=== PATIENT | female | born 1960 | race Caucasian/White ===

== ENCOUNTER → 2018-09-14 14:56 | Outpatient (CLI) | payer OTHER, SELFPAY ==
--- NOTE | 2018-09-14 15:00 | BI_ITS ---
MAMMOGRAPHY - BILATERAL SCREENING REASON FOR EXAM: Female, 58 years old. Routine annual screening examination. PERTINENT HISTORY: Non-contributory. TECHNIQUE: Digital bilateral breast desiree (3D mammographic acquisition) in the CC and MLO projections. 2-D mediolateral oblique (MLO) and craniocaudad (CC) views of both breasts were obtained. CAD: Full Field Digital Mammography with Computer Added Detection was performed. COMPARISON: Comparison is made with prior study dated September 08, 2017. FINDINGS: Breast Composition: The breasts are heterogeneously dense, which may obscure small masses. There are no dominant masses or suspicious calcifications. No other significant abnormalities are identified. There has been no significant change since the prior study. BI/SCREENING MAMM (CAD), BILAT IMPRESSION: Stable bilateral screening mammogram. Yearly follow-up mammogram recommended. (A) ASSESSMENT CATEGORY: BIRADS Category 1: Negative. A letter regarding these results will be sent to the patient by the facility within 30 days. Approximately 10% of breast cancers are not detected by mammography. A normal mammogram should not delay biopsy of a clinically suspicious abnormality. [id number] Electronically Signed: Alvaro Alexis MD at 8:37 EST Tel [phone], Service support ,
--- OUTSIDE RECORDS SUMMARY | 2018-11-10 01:02 | XMS RPT_ITS | Clinical Summary ---
:1960 Author Organization [facility], [facility] Address [address] [place] [address] Phone Care Team Providers Name Role Phone Ita Ledezma MD Unavailable Conditions or Problems Problem Name Problem Onset Status Entry Provider Comment Standard Annotate Code Date Date Description Postmenopausa 81057852 Active Ita Talbert Postmenopausal l bleeding (SNOMED 11/01 11/[address]) MD Encounter for 48451570 Active Ita Talbert Gynecologic gynecological (SNOMED 11/01 11/[address]) (general) (routine) with abnormal findings Screening 97206602 Active Ita Talbert Screening mammogram for (SNOMED 10/31 10/[address] cancer [address]) Medications Medication Instructions Start Stop Generic Name NDC Provider Date Date ESCITALOPRAM One tablet by / ESCITALOPRAM [id number] Ita Talbert OXALATE 10 MG mouth daily 03 OXALATE Danielanthradha TABS PANTOPRAZOLE Two tablets by / PANTOPRAZOLE [id number] Heide A SODIUM 40 MG mouth daily 03 SODIUM Andriessen TBEC LOSARTAN One tablet by / LOSARTAN [id number] Heide A POTASSIUM-HCTZ mouth daily 03 POTASSIUM-HCTZ Andriessen 100-25 MG TABS SUCRALFATE 1 GM as needed / SUCRALFATE [id number] Heide A TABS 03 Andriessen ZYRTEC ALLERGY One tablet by / CETIRIZINE HCL [id number] Heide A 10 MG CAPS mouth daily 03 Andriessen OCUVITE ADULT One tablet by / MULTIPLE [id number] Heide A FORMULA CAPS mouth daily 03 VITAMINS-MINERA Andriessen LS MULTIVITAMIN One tablet by [id number] Heide A ADULT TABS mouth daily 03 VITAMINS-MINERA Andriessen LS Medications Administered No information available. Allergies, Adverse Reactions, Alerts Allergy Name Reaction Description Start Date Severity Status Provider IMITREX Critical Active Heide A Andriessen SULFA DRUGS Critical Active Heide A Andriessen Results Date Name Value Unit Range Flag Description Office Visit: est annual MEDS REVIEW Done Documentation of current medications (procedure) MAMMOGRAM Normal Bilateral Breast Mammogram screening PAP SMEAR Normal General categories [Interpretation] of Cervical or vaginal smear or scraping by Cyto stain ORALTOBACUSE Never Tobacco smoking status NHIS SMOK STATUS Never smoker Tobacco use [facility] No Fall risk assessment Plan of Care Type Date Detail Pending order US Transvaginal Pending order US Pelvis Pending order Mammogram, Screening, both breasts Procedures No information available. Vital Signs Date Name Value Unit Description BMI (Body Mass Index) 35.32 kg/m2 Body Mass Index [Ratio] BP Diastolic 84 mm[Hg] blood pressure, diastolic - 8462-4 BP Systolic 150 mm[Hg] blood pressure, systolic - 8480-6 Height 64 [in_us] height E&M - 8302-2 Height 162.56 cm height in centimeters E&M Weight Measured 205.8 [lb_av] weight E&M - 3141-9 Weight Measured 93.35 kg weight in kilograms E&M
--- OUTSIDE RECORDS SUMMARY | 2018-11-10 01:02 | XMS RPT_ITS | Clinical Summary ---
:1960 Author Organization [facility], [facility] Address [address] [place] [id number] Phone Care Team Providers Name Role Phone Andriessen Heide A Unavailable Unavailable Conditions or Problems No information available. Medications Medication Instructions Start Stop Generic Name NDC Provider Date Date ESCITALOPRAM One tablet by / ESCITALOPRAM [id number] Heide A OXALATE 10 MG mouth daily 03 OXALATE Andriessen TABS PANTOPRAZOLE Two tablets by / PANTOPRAZOLE [id number] Heide A SODIUM 40 MG mouth daily 03 SODIUM Andriessen TBEC LOSARTAN One tablet by / LOSARTAN [id number] Heide A POTASSIUM-HCTZ mouth daily 03 POTASSIUM-HCTZ Andriessen 100-25 MG TABS SUCRALFATE 1 GM as needed / SUCRALFATE [id number] Heide A TABS 03 Andriessen ZYRTEC ALLERGY One tablet by / CETIRIZINE HCL [id number] Heide A 10 MG CAPS mouth daily 03 Andriessen OCUVITE ADULT One tablet by / MULTIPLE [id number] Heide A FORMULA CAPS mouth daily 03 VITAMINS-MINERA Andriessen LS MULTIVITAMIN One tablet by / MULTIPLE [id number] Heide A ADULT TABS mouth daily 03 VITAMINS-MINERA Andriessen LS Medications Administered No information available. Allergies, Adverse Reactions, Alerts Allergy Name Reaction Description Start Date Severity Status Provider IMITREX Critical Active Heide A Andriessen SULFA DRUGS Critical Active Heide A Andriessen Results Date Name Value Unit Range Flag Description Clinical Lists Update: Preload SMOK STATUS Never smoker Tobacco use [facility] Plan of Care Type Date Detail Appointment 08:20 AM Ita Ledezma MD, [address] [place] [address], [address] Floor, [place], [address], Procedures No information available. Vital Signs No information available.
--- OUTSIDE RECORDS SUMMARY | 2018-11-10 01:02 | XMS RPT_ITS | Clinical Summary ---
:1960 Author Organization [facility], [facility] Address [address] [place] [address] Phone Care Team Providers Name Role Phone Ita Ledezma MD Unavailable Conditions or Problems Problem Problem Onset Status Entry Provider Comment Standard Annotate Name Code Date Date Description Screening [id number] Active Ita Talbert Screening mammogram ( [place] mammography for breast CT) cancer Medications Medication Instructions Start Stop Generic Name NDC Provider Date Date ESCITALOPRAM One tablet by / ESCITALOPRAM [id number] Heide A OXALATE 10 MG mouth daily 03 OXALATE Andriessen TABS PANTOPRAZOLE Two tablets by / PANTOPRAZOLE [id number] Heide A SODIUM 40 MG mouth daily 03 SODIUM Andriessen TBEC LOSARTAN One tablet by / LOSARTAN [id number] Heide A POTASSIUM-HCTZ mouth daily 03 POTASSIUM-HCTZ Andriessen 100-25 MG TABS SUCRALFATE 1 GM as needed / SUCRALFATE [id number] Heide A TABS 03 Andriessen ZYRTEC ALLERGY One tablet by / CETIRIZINE HCL [id number] Heide A 10 MG CAPS mouth daily 03 Andriessen OCUVITE ADULT One tablet by / MULTIPLE [id number] Heide A FORMULA CAPS mouth daily 03 VITAMINS-MINERA Andriessen LS MULTIVITAMIN One tablet by / MULTIPLE [id number] Heide A ADULT TABS mouth daily 03 VITAMINS-MINERA Andriessen LS Medications Administered No information available. Allergies, Adverse Reactions, Alerts Allergy Name Reaction Description Start Date Severity Status Provider IMITREX Critical Active Heide A Andriessen SULFA DRUGS Critical Active Heide A Andriessen Results Date Name Value Unit Range Flag Description Clinical Lists Update: Preload SMOK STATUS Never smoker Tobacco use [facility] Plan of Care Type Date Detail Appointment 08:20 AM Ita Ledezma MD, [address], [address] Floor, [place], [address], Pending order Mammogram, Screening, both breasts Procedures No information available. Vital Signs No information available.
--- OUTSIDE RECORDS SUMMARY | 2018-11-10 01:02 | XMS RPT_ITS ---
:1960 Author Organization OHIP Care Team Providers Name Role Phone Kemal, Abran Primary Care Unavailable Stencel, Marco A Attending Unavailable Sommer, Christopher Primary Care Unavailable Stencel, Marco A Attending Unavailable Sommer, Christopher Primary Care Unavailable Sommer, Christopher Admitting Unavailable Sommer, Christdouglaser Attending Unavailable Sommer, Christopher Primary Care Unavailable Stencel, Marco A Attending Unavailable Sommer, Christopher Primary Care Unavailable Ita Ledezma Attending Unavailable STENCEL, MARCO A Referring Unavailable STENCEL, MARCO A Primary Care Unavailable MarcanthonyIta Attending Unavailable STENCEL, MARCO A Primary Care Unavailable MarcanthIta garcia Attending Unavailable STENCEL, MARCO A Primary Care Unavailable PROBLEMS PROBLEMS DATE TYPE CONDITION / CODE ATTENDING STATUS SOURCE 10/28/2017 Unknown N95.0 - [place]ari[place], Active Isabel Postmenopausal [facility] N95.0(ICD-10) Repository PROCEDURES PROCEDURES No Procedure Records FoundRESULTS RESULTS SCREENING MAMM (CAD), Observed: 09/14/2018 Status: F Source: ISABEL BILAT 3:00 PM [facility] REPOSITORY [facility] Imaging Services [address] [place] [address] SCREENING MAMM (CAD), BILAT MR#: [id number] Acct: [id number] Name: ESTUARDO GALLO Rep #: [id number] : 1960 F 58 From: Alvaro Alexis MD PCP: Marco A Ferrer MD Status: [facility] Study: SCREENING MAMM (CAD), BILAT Date of Exam: 09/14/18 Exam# [id number] Ordering Dr: Ita Ledezma MD MAMMOGRAPHY - BILATERAL SCREENING REASON FOR EXAM: Female, 58 years old. Routine annual screening examination. PERTINENT HISTORY: Non-contributory. TECHNIQUE: Digital bilateral breast desiree (3D mammographic acquisition) in the CC and MLO projections. 2-D mediolateral oblique (MLO) and craniocaudad (CC) views of both breasts were obtained. CAD: Full Field Digital Mammography with Computer Added Detection was performed. COMPARISON: Comparison is made with prior study dated September 08, 2017. FINDINGS: Breast Composition: The breasts are heterogeneously dense, which may obscure small masses. There are no dominant masses or suspicious calcifications. No other significant abnormalities are identified. There has been no significant change since the prior study. BI/SCREENING MAMM (CAD), BILAT IMPRESSION: Stable bilateral screening mammogram. Yearly follow-up mammogram recommended. (A) ASSESSMENT CATEGORY: BIRADS Category 1: Negative. A letter regarding these results will be sent to the patient by the facility within 30 days. Approximately 10% of breast cancers are not detected by mammography. A normal mammogram should not delay biopsy of a clinically suspicious abnormality. [id number] Electronically Signed: Alvaro Alexis MD at 8:37 EST Tel [phone], Service support , CC: Marco A Ferrer MD; Ita Ledezma MD Senior Compensation Analyst: Signed CBC W/ AUTO DIFF Collected: 11/24/2017 Status: F Source: [facility] 11:09 [facility] REPOSITORY TYPE CODE TESTS RESULT OUT OF RANGE REFERENCE UNITS LAB [id number](L 3.6-11.0 E3/mcL OINC) Normal WBC 7.2 LAB 20626035(L 3.90-5.40 E6/mcL OINC) Normal RBC 4.78 LAB 67564197(L 12.0-16.0 G/DL OINC) Normal Hgb 14.2 LAB 97320845(L 36.0-48.0 % OINC) Normal Hct 42.5 LAB 24917229(L 11.5-14.5 % OINC) Normal RDW 14.4 LAB 21305538(L 27.0-31.0 pg OINC) Normal MCH 29.7 LAB 43309031(L 33.0-37.0 G/DL OINC) Normal MCHC 33.4 LAB 24945226(L 78.0-100.0 fL OINC) Normal MCV 88.8 LAB 91770478(L 7.4-11.0 fL OINC) Normal MPV 7.9 LAB 52145797(L 130-400 E3/mcL OINC) Normal Platelet 247 Performed By: #### [id number] #### MAYELA [facility] [address] [place] [address] AUTO DIFF Collected: 11/24/2017 Status: F Source: [facility] 11:09 [facility] REPOSITORY Order Comment: Order Added by Discern Expert. TYPE CODE TESTS RESULT OUT OF RANGE REFERENCE UNITS LAB [id number](L 37.0-75.0 % OINC) Normal Neutro Auto 54.0 LAB 12764558(L 20.0-55.0 % OINC) Normal Lymph Auto 37.1 LAB 16066673(L 0.0-10.0 % OINC) Normal [place] Auto 6.3 LAB 56667736(L 0.0-11.0 % OINC) Normal Eos Auto 1.8 LAB 28924614(L 0.0-2.0 % OINC) Normal Basophil Auto 0.8 LAB 27088082(L 1.4-6.5 E3/mcL OINC) Normal Neutro 3.9 Absolute LAB 96686538(L 1.2-3.4 E3/mcL OINC) Normal Lymph Absolute 2.7 LAB 73326045(L 0.0-0.7 E3/mcL OINC) Normal [place] Absolute 0.5 LAB 51426160(L 0.0-0.7 E3/mcL OINC) Normal Eos Absolute 0.1 LAB 28309886(L 0.0-0.2 E3/mcL OINC) Normal Basophil 0.1 Absolute Performed By: #### [id number] #### MAYELA [facility] [place] [address] CMP Collected: 11/24/2017 Status: F Source: [facility] 11:09 AM [facility] REPOSITORY TYPE CODE TESTS RESULT OUT OF RANGE REFERENCE UNITS LAB 83801796(L 70-99 mg/dL OINC) High Glucose Lvl 100 LAB 82334039(L 8.4-10.2 mg/dL OINC) Calcium Normal Lvl 10.1 LAB 36548498(L 136-145 mEq/L OINC) Sodium Normal Lvl 141 LAB 81604723(L 3.5-5.1 mEq/L OINC) Normal Potassium Lvl 3.7 LAB 19146146(L 98-107 mEq/L OINC) Chloride Normal 104 LAB 12868134(L 24.0-30.0 mEq/L OINC) High CO2 30.9 LAB 41308751(L 7-18 mg/dL OINC) BUN Normal 16 LAB 6413311(LO 0.6-1.3 mg/dL INC) Normal Creatinine 0.8 LAB 72821451(L 42-121 Int._Unit/ OINC) L Alk Phos Normal 67 LAB 73918260(L 0.2-1.0 mg/dL OINC) Bili Normal Total 0.6 LAB 80313715(L 3.2-5.0 G/DL OINC) Albumin Normal Lvl 3.8 LAB 54183352(L 6.4-8.3 G/DL OINC) Total Normal Protein 7.3 LAB 13293077(L 10-40 Int._Unit/ OINC) L ALT Normal 37 LAB 84682677(L 10-42 Int._Unit/ OINC) L AST Normal 27 LAB 06736578(L 5.4-30.0 ratio OINC) Normal BUN/Creat Ratio 20.0 LAB 30904961(L 2.0-4.0 G/DL OINC) Globulin Normal 3.5 LAB 12022323(L 1.1-1.9 ratio OINC) A/G Normal Ratio 1.1 Performed By: #### [id number] #### MAYELA [facility] [place] [id number] EGFR Collected: 11/24/2017 Status: F Source: [facility] 11:09 [facility] REPOSITORY Order Comment: Order added by Discern Expert. TYPE CODE TESTS RESULT OUT OF RANGE REFERENCE UNITS LAB 44365874(LO mL/min/1.73 INC) m2 Normal eGFR >60 LAB 21274648(LO mL/min/1.73 INC) m2 Normal eGFR AA >60 Performed By: #### [id number] #### MAYELA [facility] [place] [id number] LIPID PROFILE Collected: 11/24/2017 Status: F Source: [facility] 11:09 [facility] REPOSITORY TYPE CODE TESTS RESULT OUT OF RANGE REFERENCE UNITS LAB 79650210(LO 50-200 mg/dL INC) Normal Chol 163 Result Comment: TOTAL CHOLEESTEROL: <200 NORMAL 200 - 239 BORDERLINE HIGH >240 HIGH LAB 55828542(LOINC) >=41 mg/dL Normal HDL 50 LAB 63950157(LOINC) 0-130 mg/dL Normal LDL 89 Result Comment: <100 OPTIMAL 100-129 NEAR / ABOVE OPTIMAL 130-159 BORDERLINE HIGH 160-189 HIGH >190 VERY HIGH CALC LDL NOT VALID WHEN TRIGLYCERIDE IS >400 MG/DL LAB 76611262(LOINC) 35-150 mg/dL Normal Trig 122 Result Comment: <150 NORMAL 150-199 BORDERLINE HIGH 200-499 HIGH >500 VERY HIGH LAB 78839793(LOINC) Normal VLDL 24 Performed By: #### [id number] #### MAYELA [facility] [place] [address] COIL TIER OFFICE VISIT Observed: 10/29/2017 Status: F Source: ISABEL REPORT 6:02 AM [facility] REPOSITORY [facility] [place] [address] OFFICE VISIT Date of Service: 10/27/17 MR#: [id number] Acct: [id number] Name: ESTUARDO GALLO Rep #: [id number] : 1960 Provider: Ita Ledezma MD Age/Sex: 57/F Location: [facility] Status: Signed Intake Vital Signs10/27/17 Height 5 ft 4 in Intake Visit Reasons: F/U U/S Chief Complaint: follow up on u/s results Is patient in pain?: No Allergies Sulfa (Sulfonamide Antibiotics) Allergy (Intermediate, Verified 10/27/17 09:09) allergy imitrex Allergy (Intermediate, Uncoded 10/27/17 09:09) allergy [facility] Medical History Obesity (Acute) Heel spur (Acute) Surgical History H/O tubal ligation (Acute) Family History Father Cancer Social History Smoking Status: Never smoker alcohol intake: never substance use type: does not use caffeine: Yes seatbelt use: always do you feel safe at home: Yes additional social history: spouse miriam Pregancy History 2 Elective abortions Hx Para 2 Spontaneous abortions Past Pregnancies Del. DatName [place]/WeeksOutcome Route [facility] LocaProviderFOB e ht en tn Unknown 1981 Fili Male e Unknown [address] HPI F/U U/S: Details: ESTUARDO GALLO is a 57 year old who presents for postmenopausal bleeding. she has had several episodes and denies any crmaping or bleeding today. us showed 9 mm lining with several small fibroids. she denies any pain. she is interested in losing weight. ROS Const Constitutional: Denies poor appetite, headache(s), fever(s), increased appetite, weight gain, weight loss or fatigue Cardio Card: Denies chest pain Resp Resp: Denies dyspnea or cough GI GI: Reports as per HPI; denies vomiting, nausea, abdominal pain or constipation : Reports as per HPI; denies urinary urgency, vaginal discharge, urinary frequency, vaginal itching, vaginal odor, vaginal dryness, urinary incontinence, urinary hesitancy, difficulty urinating, painful urination or nipple discharge Skin Skin/Breast: Denies breast lump, breast pain, breast skin changes, nipple discharge or change in hair Exam Const General: cooperative, healthy appearing, comfortable, no acute distress, well developed Nutritional Appearance: average body habitus Orientation: alert HENMT Head: normal to inspection, normocephalic Neck Neck: normal visual inspection, trachea midline Thyroid: thyroid normal Resp Effort AND Inspection: normal respiratory effort GI Inspection: normal to inspection, non-distended Palpation: soft, no hepatosplenomegaly General: bladder normal to palpation External Female Exam: normal external appearance, normal appearance of the urethra Urethra: normal appearance of the urethra, normal palpation, no discharge Speculum Exam - Vagina: normal appearance of the vagina, normal vaginal discharge Speculum Exam - Cervix: normal appearance of the cervix, nontender Bimanual Exam- Vagina AND Uterus: bladder normal to palpation, No cervical tenderness, normal bimanual exam, uterine size normal, uterine shape normal, uterine mobility normal, uterine consistency normal, normal cervical palpation, uterus non-tender Bimanual Exam- Adnexa, other: normal adnexae, adnexae mobile, no adnexal masses, pelvic support normal Pelvic Support: normal Skin General: no rashes or lesions noted Office Procedures Endometrial Biopsy Endometrial Biopsy Test: Yes Not Applicable Consent Signed: Yes Time out checklist: patient, procedure, site marked/identified, positioning of patient, supplies available, allergies confirmed, team agrees on procedure tenaculum used: No dilator used: No Details: Cervix prepped with betadine and pipelle inserted into uterus without complication. Specimen obtained and sent to lab for analysis. All instruments removed from vagina without complications. Excellent hemostasis noted. Assessment AND Plan Problems 1. Post-menopausal bleeding N95.0 fibroids, if emb normal only proceed to d and c if persistent vaginal bleeding 2. Obesity due to excess calories without serious comorbidity, unspecified classification E66.09 discussed why weight program Plan emb done, await results. if persistent bleeding recomend d and c otherwise fu prn or for annual exams Orders Orders: 10/29/17 0602 <Electronically signed by Ita Ledezma MD> Date Ita Ledezma MD Cosigner Signature: Date (if applicable) CC: ENDOMETRIAL BX/CURETTINGS Observed: 10/27/2017 Status: F Source: ISABEL 12:00 AM [facility] REPOSITORY Patient: ESTUARDO GALLO : 1960 (57/F) Acct Num: [id number] Phys: [place] MAYNARD,Ita Unit Num: [id number] Loc: LABSPEC Specimen: [id number] Received: 10/28/17821 Spec Type: ENDOM BX/C TISSUES TISSUES: Endometrium, NOS COMMENT Clinical correlation and appropriate follow up are necessary. GROSS DESCRIPTION Received is one container labeled with the patient's name and not further designated. The specimen consists of multiple fragments of hemorrhagic soft tissue that in aggregate measure 0.5 x 0.5 x 0.1 cm. The specimen is totally submitted in one cassette. / NALLELY:meera 10/28/17 TC:4 CPT: 91321 HEADER OPERATION: Endometrial biopsy PRE-OP DIAGNOSIS: Postmenopausal bleeding TISSUE SUBMITTED: Endometrial biopsy MICROSCOPIC DESCRIPTION Slides are reviewed. MICROSCOPIC DIAGNOSIS Endometrial biopsy: Strips and superficial fragments of benign endometrial tissue, consistent with atrophic endometrium. See comment. NALLELY:meera 10/29/17 Signed Gideon Huber 10/29/17 <signature on file> Performed By: #### PEMB #### [facility] [address] [place] [address]. [place], [address] ALLERGIES ALLERGIES DATE TYPE / CODE NAME / CODE REACTION SEVERITY SOURCE 10/27/2017 Drug Sulfa allergy [place] [facility] Allergy/593813565(S (Sulfonamide Community NOMED CT) Antibiotics)/ Hospital [id number](RX Repository NORM) 10/27/2017 Miscellaneous imitrex allergy [place] [facility] Allergy/860794073(S Community NOMED CT) Hospital Repository Drug/376214390(SNOM sulfa drugs Restorationist ED CT) [facility] Repository Drug/263503832(SNOM Amoxil 536196922 [facility] ED [facility]) [facility] Repository Drug/659202754(SNOM Imitrex 437382875 Restorationist ED CT) [facility] Repository ENCOUNTERS ENCOUNTERS ADMIT/DISCHARGE ACCOUNT ADMITTING ENCOUNTER LOCATION SOURCE NUMBER CLASS 09/14/2018 [id number] [facility] ing:[facility] Repository 05/25/2018 [id number] [facility] ing:[facility] Repository 05/25/2018 [id number] [facility] [place] [facility] 05/25/2018/05/25/20 [id number] [facility] [address] [place] Med AssocRoom: Room 2 11/24/2017/11/24/19 [id number] Kemal [address] ing:[facility] Repository 11/24/2017/11/24/19 [id number] [facility] [address] [place] Repository Med AssocRoom: Room 1 10/27/2017 [id number] [facility] ing:[facility] Repository 10/27/2017/10/27/19 [id number] Ambulatory BMSBuilding:B Isabel [address] [facility] Repository PAYERS PAYERS ENCOUNTER GUARANTOR PAYER SUBSCRIBER SOURCE 09/14/2018 HOA Primary Insurance:UMSoraya YATES [address] [address]Iopxwgfrank OSPINAB: [address] Number: [id number] Hospital [address]Qbr: ([phone]) [id number] Repository [phone] () Date:[id number] [address] [address] [address]LZ: 09/14/2018 Secondary NOT KEVIN Hall Insurance:SELF PAY [facility] Number: Effective Repository Date:2018-07-20 05/25/2018 ESTUARDO OSPINAB: Insurance:1500 LINDEUGENIADOB: [facility] [id number] BOX UMRPolicy Number: [id number] System [id number] [facility] Effective BOX Repository [facility] Date:2018-05-25[place], [place] [id number] [id number]: [phone]: Name:CD:[id number] [address] [address]FCQM POP (HP)Tel: [phone] (HP) [place], [place] [address]MT: [phone] (WP) 05/25/2018 ESTUARDO Cunha Primary HOA OSPINAB: Insurance:1500 LUIS ANGELDOB: [facility] [id number] BOX UMRPolicy Number: [id number] System [address] [facility] Effective BOX Repository [facility] Date:2018-05-25[place], [place] 3472-76-94Nkhs [id number]: [phone]: Name:CD:[id number] [address] [address]YBVG POP (HP)Tel: [phone]) (HP) [place], [place] [address]ST: [phone] (WP) 05/25/2018 ESTUARDO Cunha Primary HOA OSPINAB: Insurance:1500 LUIS ANGELDOB: [facility] [id number] BOX UMRPolicy Number: [id number] System [id number] [facility] Effective BOX Repository [facility] Date:2017-11-24[place], [place] 6958-71-50Myff [id number]: [phone]: Name:CD:[id number] [address] [address]GQLW POP (HP)Tel: [phone]) (HP) [place], [place] [address]FA: [phone] (WP) 11/24/2017 ESTUARDO Cunha Primary HOA OSPINAB: Insurance:UMR-UHCPoli LUIS ANGELDOB: [facility] [id number] BOX cy Number: Effective [id number] System [id number] [facility] Date:2017-11-24 - BOX Repository [facility] [id number] Name:CD:[id number] [address] [id number]: [phone]: [address] [place] [address] [place] [address]FL: (HP)Tel: [phone] (HP) [phone] (WP) 11/24/2017 ESTUARDO Stallingstan NETO: Insurance:Renetta HIRALPABLOB: [facility] [id number] BOX UMRPolicy Number: [id number] System [address] [facility] Effective BOX Repository [facility] Date:2017-11-24 - [address] [place] [address] [id number] [id number]: [phone]: Name:CD:[id number] [address] [place] [address] ()Tel: [phone]) () [place], [place] [address]TL: [phone] (WP) 10/27/2017 Hoa Primary Insurance:UMR Hoa [address] [address]NcfusgAde OspinaB: [address] Number: [id number] [address]Jhc: [phone] Repository [phone] (HP) Date:4204-84-24ZC [address] [place] [address]RB: 10/27/2017 Secondary NOT GIVENBHARAT Hall Insurance:SELF PAY [facility] Number: Effective Repository Date:2017-10-27 10/27/2017 Hoa Primary Insurance:UMR Hoa [address] [address]Mdvjes [facility] [address] Number: [id number] [facility] [id number]: [phone]) [id number] Repository [phone] () Date:3629-25-18FS [address] [address] [address]VD: 10/27/2017 Secondary NOT GIVENUNK Isabel Insurance:SELF PAY [facility]: Effective Repository Date:2017-09-27
--- OUTSIDE RECORDS SUMMARY | 2018-11-10 01:02 | XMS RPT_ITS | Clinical Summary ---
:1960 Author Organization [facility] Address [address] [place] [address] Phone Care Team Providers Name Role Phone Ita Ledezma MD Unavailable Conditions or Problems Problem Name Problem Onset Status Entry Provider Comment Standard Annotate Code Date Date Description Postmenopausa 59902246 Active Iat Talbert Postmenopausal l bleeding (SNOMED 11/01 11/[address]) MD Encounter for 25075185 Active Ita Talbert Gynecologic gynecological (SNOMED 11/01 11/[address]) (general) (routine) with abnormal findings Screening 35160826 Active Ita Talbert Screening mammogram for (SNOMED 10/31 10/[address] breast cancer [address]) Medications Medication Instructions Start Stop Generic Name NDC Provider Date Date ESCITALOPRAM One tablet by / ESCITALOPRAM 47587077772 Ita Talbert OXALATE 10 MG mouth daily 03 OXALATE Danielanthrdaha TABS PANTOPRAZOLE Two tablets by / PANTOPRAZOLE 35749359000 Heide A SODIUM 40 MG mouth daily 03 SODIUM Andriessen TBEC LOSARTAN One tablet by / LOSARTAN 40171127870 Heide A POTASSIUM-HCTZ mouth daily 03 POTASSIUM-HCTZ Andriessen 100-25 MG TABS SUCRALFATE 1 GM as needed / SUCRALFATE 61992984548 Heide A TABS 03 Andriessen ZYRTEC ALLERGY One tablet by / CETIRIZINE HCL 27317363471 Heide A 10 MG CAPS mouth daily 03 Andriessen OCUVITE ADULT One tablet by / MULTIPLE 30786715661 Heide A FORMULA CAPS mouth daily 03 VITAMINS-MINERA Andriessen LS MULTIVITAMIN One tablet by 26585845020 Heide A ADULT TABS mouth daily 03 [...] NHIS SMOK STATUS Never smoker Tobacco use [facility] No Fall risk assessment Plan of Care Type Date Detail Appointment 08:20 AM Ita Ledezma MD, [address] [facility], Third Floor, [place], [address], Pending order US Transvaginal Pending order US [...]
== END ==
PROVIDERS: Family Provider Family Medicine; PCP Family Medicine; Visit Provider Obstetrics & Gynecology
DX: Z12.31 Encounter for screening mammogram for malignant neoplasm of breast (principal)
CPT/HCPCS: 77063; 77067

== ENCOUNTER → 2018-11-02 14:56 | Outpatient (CLI) | payer BC, SELFPAY ==
[2018-11-02 09:34] VITALS: BMI 35.6
[2018-11-07 13:17] LABS: HPV APTIMA, High Risk Negative (Negative)
--- OUTSIDE RECORDS SUMMARY | 2019-01-07 14:10 | XMS RPT_ITS ---
:1960 Author Organization OHIP Care Team Providers Name Role Phone Marco A Ferrer Attending Unavailable Sommer, Christopher Primary Care Unavailable Stencel, Marco A Attending Unavailable Sommer, Christopher Primary Care Unavailable Sommer, Christopher Admitting Unavailable Sommer, Christopher Attending Unavailable Sommer, Christopher Primary Care Unavailable Stencel, Marco A Attending Unavailable Sommer, Christopher Primary Care Unavailable Sommer, Christopher Primary Care Unavailable Ita Ledezma Attending Unavailable STENCEL, MARCO A Referring Unavailable Ita Ledezma Attending Unavailable Marcanthony, Ita Referring Unavailable STENCEL, MARCO A Primary Care Unavailable Ita Ledezma Attending Unavailable STENCEL, MARCO A Primary Care Unavailable PROBLEMS PROBLEMS DATE TYPE CONDITION / CODE ATTENDING STATUS SOURCE 11/02/2018 Unknown Z12.4 - Encounter Austin Ledezma for screening for [facility] malignant neoplasm [facility] / Repository Z12.4(ICD-10) 11/02/2018 Unknown F32.9 - Major [place], Active Isabel depressive [facility] disorder, single Hospital episode, Repository unspecified / F32.9(ICD-10) 11/02/2018 Unknown E66.09 - Other [place], Active Isabel obesity due to [facility] excess calories / Hospital E66.09(ICD-10) Repository 11/02/2018 Unknown Z01.411 - Encounter [place], Active Isabel for gynecological [facility] (general) (routine) Repository with abnormal findings / Z01.411(ICD-10) PROCEDURES PROCEDURES No Procedure Records FoundRESULTS RESULTS CHEMISTRY QUALITY CONTROL TECHNICIAN OFFICE VISIT Observed: 11/02/2018 Status: F Source: [place] REPORT 10:08 AM [facility] REPOSITORY [facility] [address] [place] [address]. 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 Is patient in pain?: No Allergies Sulfa (Sulfonamide Antibiotics) Allergy (Intermediate, Verified 11/02/18 09:34) allergy imitrex Allergy (Intermediate, Uncoded 11/02/18 09:34) allergy Medications escitalopram 10 mg tablet 10 mg PO QDAY #90 tab 01/11/18 [Rx] amlodipine 5 mg tablet 5 mg PO DAILY 11/02/18 [History Confirmed 11/02/18] cetirizine 10 mg capsule 10 mg PO DAILY 11/02/18 [History Confirmed 11/02/18] losartan 100 mg-hydrochlorothiazide 25 mg tablet 1 tab PO DAILY 11/02/18 [History Confirmed 11/02/18] lutein 20 mg capsule 20 mg PO DAILY 11/02/18 [History Confirmed 11/02/18] multivitamin,ce-rslf-ngcxjzid tablet 1 tab PO DAILY 11/02/18 [History Confirmed 11/02/18] pantoprazole 40 mg tablet,delayed release 40 mg PO DAILY 11/02/18 [History Confirmed 11/02/18] sucralfate 1 gram tablet 1 g PO QACHS 11/02/18 [History Confirmed 11/02/18] Is last menstrual period known: No Post menopausal: Yes Patient : No : No PFSH Medical History Obesity (Acute) Frequent headaches (Acute) GERD (gastroesophageal reflux disease) (Acute) Hypertension (Chronic) Heel spur (Acute) Surgical History kidney stone surgery (Acute) H/O tubal ligation (Acute) Family History Father Cancer rectal Mother Hypertension Social History Smoking Status: Never smoker alcohol intake: never substance use type: does not use caffeine: Yes what type of physical activity do you participate in: none seatbelt use: always do you feel safe at home: Yes additional social history: Asad Olmos Patient takes care of her mother Pregancy History 2 Elective abortions Hx Para 2 Spontaneous abortions Past Pregnancies Del. DatName GA/WeeksOutcome Route [facility] LocaProviderFOB e ht en tn Unknown 1981 Fili Male e Unknown 1982 Wad e HPI ANNUAL/R/S from 10/26/18: Details: ESTUARDO PLASENCIA is a 58 year old who presents for annual exam. dad has been gone over a year, mom with alzheimer's living with her now. Last PAP:nl 14 History of abnormal PAP: no Last mammogram: done History of abnormal mammogram: Colon cancer screening: ordered Other preventative health care screening: PCP Female Reproductive History Questions: Metorrhagia: No, Sexually active: Yes, Dyspareunia: No, PCB: No Menopausal Symptoms: No hot flashes, No night sweats, No weight change, No mood changes, No difficulty concentrating, No sleep problems, Yes change in libido ROS Const Constitutional: Reports as per HPI; denies poor appetite, fatigue, increased appetite, weight gain, weight loss or night sweats Cardio Card: Denies chest pain Resp Resp: Denies dyspnea or cough GI GI: Reports as per HPI; denies bloating, abdominal pain, constipation, vomiting or nausea : Reports as per HPI and other; denies blood in urine, vaginal odor, vaginal itching, vaginal dryness, vaginal discharge, urinary urgency, urinary incontinence, urinary frequency, pelvic pain, painful urination, difficulty urinating, prolapse symptoms, nipple discharge or hot flashes Skin Skin/Breast: Denies breast pain, breast skin changes, nipple discharge, breast lump or changing lesions Psych Psych: Reports change in sex drive and depression; denies difficulty concentrating Exam Const General: cooperative, healthy appearing, comfortable, no acute distress, well developed, well groomed [facility] Head: normal to inspection, normocephalic Ears: hearing grossly normal bilaterally, external ears normal Nose: external nose normal Face and sinus: normal facial exam Neck Neck: normal visual inspection, full ROM, no lymphadenopathy Thyroid: thyroid normal Chest Chest palpation AND inspection: normal inspection of the chest Breast inspection: normal inspection of the breasts, normal inspection of the axillae Breast palpation: normal palpation of the breasts, normal palpation of the axillae, no axillary lymphadenopathy Resp Effort AND Inspection: normal respiratory effort GI Inspection: normal to inspection, non-distended Palpation: no guarding, soft, no hepatosplenomegaly General: bladder normal to palpation External Female Exam: normal external appearance, normal appearance of the urethra, no lesions Urethra: normal appearance of the urethra, normal palpation Speculum Exam - Vagina: normal appearance of the vagina, normal vaginal discharge Speculum Exam - Cervix: normal appearance of the cervix, no cervical discharge, no lesions, nontender Bimanual Exam- Vagina AND Uterus: No cervical tenderness, normal bimanual exam, uterine size normal, bladder normal to palpation, uterine mobility normal, uterine consistency normal, uterus non-tender, no cervical motion tenderness Bimanual Exam- Adnexa, other: normal adnexae, no adnexal masses, adnexae non-tender Skin General: no rashes or lesions noted Neuro General: alert, moves all extremities, no focal motor deficits Extrem General: no pedal edema, normal to inspection Psych Appearance: grossly normal Mental Status: mental status grossly normal Affect: normal affect Speech and Movement: speech and movement normal Attitude: cooperative Assessment AND Plan Problems 1. 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 Obesity due to excess calories without serious comorbidity, unspecified classification E66.09 discussed why weight program 3. Encounter for gynecological examination with abnormal finding Z01.411 Plan Cervical cancer screening: pap hpv Breast cancer screening: mamm up to date other health maintenance examination reviewed and orders placed if needed. Encouraged maintenance of a healthy weight and active lifestyle and handout given. Annual exam handout including recommendations for good health guidelines, Calcium/vitamin D recommendations, and basic screening information given. Problem list up to date, see problem list details for any additional plan information. Follow up in one year for annual health maintenance exam or sooner if needed. Orders Orders: Coding Level of Care Code Off vis,est,prev 40-64yrs Diagnoses Reactive depression F32.9 Depression Type: reactive depression Obesity due to excess calories without serious comorbidity, unspecified classification E66.09 Obesity type: due to excess calories Obesity classification: unspecified obesity classification Serious obesity comorbidity presence: without serious comorbidity Encounter for gynecological examination with abnormal finding Z01.411 Gynecological examination findings: abnormal findings PRESENT 11/02/18 1008 <Electronically signed by Ita Ledezma MD> Date Ita Ledezma MD Cosigner Signature: Date (if applicable) CC: PAP IG HPV APTIMA Collected: 11/02/2018 Status: F Source: ISABEL ,45 9:00 AM [facility] REPOSITORY Order Comment: CYTOLOGY INFORMATION: - CLINICAL INFORMATION: - DATE LMP/MENOPAUSE: MENOPAUSE - COLLECTION VIAL: Thin Prep Vial - TOOL OR DIE DRAWING CHECKER SOURCE: CERVICAL - COLLECTION TECHNIQUE: CX BROOM ONLY Specimen Comment: [id number] Specimen Comment: Source.............Cervix Specimen Comment: Other..............Post Menopausal Specimen Comment: No. of containers..01 ThinPrep Vial TYPE CODE TESTS RESULT OUT OF RANGE REFERENCE UNITS LAB L7400.0800 . Normal DIAGN Comment Result Comment: NEGATIVE FOR INTRAEPITHELIAL LESION OR MALIGNANCY. LAB L7400.0900 . Normal ADEQ Comment Result Comment: Satisfactory for evaluation. Endocervical and/or squamous metaplastic cells (endocervical component) are present. LAB L7400.1400 . Normal PERFORM Comment Result Comment: Neelma Amezquita, Sand Mixer Operator (ASCP) LAB L7400.2575 . Normal TEST METHOD Comment Result Comment: This liquid based ThinPrep(R) pap test was screened with the use of an image guided system. LAB L7400.2600 . Normal . COMM LAB L7400.2700 . Normal PAPSMR Comment Result Comment: The Pap smear is a screening test designed to aid in the detection of premalignant and malignant conditions of the uterine cervix. It is not a diagnostic procedure and should not be used as the sole means of detecting cervical cancer. Both false-positive and false-negative reports do occur. LAB L7400.2760 Negative Normal HPV APTIMA, Negative HR Result Comment: This test detects fourteen high-risk HPV types (16/18/31/33/35/39/45/ 51/52/56/58/59/66/68) without differentiation. Performed at: - [facility] [id number] Retail Buyer: Ayse Ballard MD, Phone: [phone] Performed at: = - [facility] [id number] Retail Buyer: Ayse Ballard MD, Phone: [phone] Performed By: #### L7400.0280 #### [facility] (refer to report for specific site) refer to report for address and phone number SCREENING MAMM (CAD), Observed: 09/14/2018 Status: F Source: [facility] 3:00 PM [facility] REPOSITORY [facility] Imaging Services [address] [place] [address] SCREENING MAMM (CAD), BIL MR#: [id number] Acct: [id number] Name: ESTUARDO PLASENCIA Rep #: [id number] : 1960 F 58 From: Alvaro Alexis MD PCP: Marco A Ferrer MD Status: REG CLI Study: SCREENING MAMM (CAD), BILAT Date of Exam: 09/14/18 Exam# [id number] Ordering Dr: Ita Ledezma MD MAMMOGRAPHY - [...] delay biopsy of a clinically suspicious abnormality. [id number] Electronically Signed: Alvaro Alexis MD at 8:37 EST Tel [phone], Service support , CC: Marco A Ferrer MD; Ita Ledezma MD Fisheries Enforcement Officer: Signed CBC W/ AUTO DIFF Collected: 11/24/2017 Status: F Source: [facility] 11:09 AM [facility] REPOSITORY TYPE CODE TESTS RESULT OUT OF RANGE REFERENCE UNITS LAB 20064910(L 3.6-11.0 E3/mcL OINC) Normal WBC 7.2 LAB 61211253(L 3.90-5.40 E6/mcL OINC) Normal RBC 4.78 LAB 10740421(L 12.0-16.0 G/DL OINC) Normal Hgb 14.2 LAB 51969145(L 36.0-48.0 % OINC) Normal Hct 42.5 LAB 67982012(L 11.5-14.5 % OINC) Normal RDW 14.4 LAB 90597456(L 27.0-31.0 pg OINC) Normal MCH 29.7 LAB 08847923(L 33.0-37.0 G/DL OINC) Normal MCHC 33.4 LAB 61339430(L 78.0-100.0 fL OINC) Normal MCV 88.8 LAB 42914145(L 7.4-11.0 fL OINC) Normal MPV 7.9 LAB 37899730(L 130-400 E3/mcL OINC) Normal Platelet 247 Performed By: #### [id number] #### MAYELA [facility] [place] [address] AUTO DIFF Collected: 11/24/2017 Status: F Source: [facility] 11:09 AM [facility] REPOSITORY Order Comment: Order Added by Discern Expert. TYPE CODE TESTS RESULT OUT OF RANGE REFERENCE UNITS LAB 58969708(L 37.0-75.0 % OINC) Normal Neutro Auto 54.0 LAB 93260384(L 20.0-55.0 % OINC) Normal Lymph Auto 37.1 LAB 00750327(L 0.0-10.0 % OINC) Normal Sumter Auto 6.3 LAB 18305277(L 0.0-11.0 % OINC) Normal Eos Auto 1.8 LAB 66685044(L 0.0-2.0 % OINC) Normal Basophil Auto 0.8 LAB 38552278(L 1.4-6.5 E3/mcL OINC) Normal Neutro 3.9 Absolute LAB 18090157(L 1.2-3.4 E3/mcL OINC) Normal Lymph Absolute 2.7 LAB 66978556(L 0.0-0.7 E3/mcL OINC) Normal Sumter Absolute 0.5 LAB 16904503(L 0.0-0.7 E3/mcL OINC) Normal Eos Absolute 0.1 LAB 65842599(L 0.0-0.2 E3/mcL OINC) Normal Basophil 0.1 Absolute Performed By: #### [id number] #### MAYELA [facility] [address] [place] [address] CMP Collected: 11/24/2017 Status: F Source: [facility] 11:09 AM [facility] REPOSITORY TYPE CODE TESTS RESULT OUT OF RANGE REFERENCE UNITS LAB 62784194(L 70-99 mg/dL OINC) High Glucose Lvl 100 LAB 26153516(L 8.4-10.2 mg/dL OINC) Calcium Normal Lvl 10.1 LAB 55734818(L 136-145 mEq/L OINC) Sodium Normal Lvl 141 LAB 25349260(L 3.5-5.1 mEq/L OINC) Normal Potassium Lvl 3.7 LAB 50898761(L 98-107 mEq/L OINC) Chloride Normal 104 LAB 36080711(L 24.0-30.0 mEq/L OINC) High CO2 30.9 LAB 81704087(L 7-18 mg/dL OINC) BUN Normal 16 LAB 1489120(LO 0.6-1.3 mg/dL INC) Normal Creatinine 0.8 LAB 31818149(L 42-121 Int._Unit/ OINC) L Alk Phos Normal 67 LAB 48204590(L 0.2-1.0 mg/dL OINC) Bili Normal Total 0.6 LAB 47023152(L 3.2-5.0 G/DL OINC) Albumin Normal Lvl 3.8 LAB 18921900(L 6.4-8.3 G/DL OINC) Total Normal Protein 7.3 LAB 44358524(L 10-40 Int._Unit/ OINC) L ALT Normal 37 LAB 73002522(L 10-42 Int._Unit/ OINC) L AST Normal 27 LAB 37465855(L 5.4-30.0 ratio OINC) Normal BUN/Creat Ratio 20.0 LAB 83215253(L 2.0-4.0 G/DL OINC) Globulin Normal 3.5 LAB 60651623(L 1.1-1.9 ratio OINC) A/G Normal Ratio 1.1 Performed By: #### [id number] #### MAYELA [facility] [address] [place] [address] EGFR Collected: 11/24/2017 Status: F Source: [facility] 11:09 AM [facility] REPOSITORY Order Comment: Order added by Discern Expert. TYPE CODE TESTS RESULT OUT OF RANGE REFERENCE UNITS LAB 10654762(LO mL/min/1.73 INC) m2 Normal eGFR >60 LAB 20927156(LO mL/min/1.73 INC) m2 Normal eGFR AA >60 Performed By: #### [id number] #### MAYELA [facility] [address] [place] [address] LIPID PROFILE Collected: 11/24/2017 Status: F Source: [facility] 11:09 AM [facility] REPOSITORY TYPE CODE TESTS RESULT OUT OF RANGE REFERENCE UNITS LAB 31448042(LO 50-200 mg/dL INC) Normal Chol 163 Result Comment: TOTAL CHOLEESTEROL: <200 NORMAL 200 - 239 BORDERLINE HIGH >240 HIGH LAB 82436662(LOINC) >=41 mg/dL Normal HDL 50 LAB 44442827(LOINC) 0-130 mg/dL Normal LDL 89 Result Comment: <100 OPTIMAL 100-129 NEAR / ABOVE OPTIMAL 130-159 BORDERLINE HIGH 160-189 HIGH >190 VERY HIGH CALC LDL NOT VALID WHEN TRIGLYCERIDE IS >400 MG/DL LAB 92680105(LOINC) 35-150 mg/dL Normal Trig 122 Result Comment: <150 NORMAL 150-199 BORDERLINE HIGH 200-499 HIGH >500 VERY HIGH LAB 75520324(LOINC) Normal VLDL 24 Performed By: #### [id number] #### MAYELA [facility] [address] [place] [address] ALLERGIES ALLERGIES DATE TYPE / CODE NAME / CODE REACTION SEVERITY SOURCE 11/02/2018 Drug Sulfa allergy [place] Allergy/250987513(S (Sulfonamide Community NOMED CT) Antibiotics)/ Hospital N608190000(RX Repository NORM) 11/02/2018 Miscellaneous imitrex allergy [place] Allergy/860853565(S Community NOMED CT) Hospital Repository Drug/814056901(SNOM sulfa drugs [facility] ED CT) Merged With [facility] Repository Drug/163345856(SNOM Amoxil 549753386 [facility] ED [facility]) Merged With [facility] Repository Drug/915751604(SNOM Imitrex 720604738 [facility] ED CT) Merged With [facility] Repository ENCOUNTERS ENCOUNTERS ADMIT/DISCHARGE ACCOUNT ADMITTING ENCOUNTER LOCATION SOURCE NUMBER CLASS 11/02/2018 [id number] [facility] 11/02/2018/11/02/19 [id number] Ambulatory BMSBuilding:B [place] [facility] Repository 09/14/2018 [id number] Ambulatory [place] [facility] ing:OPBI Repository 05/25/2018 [id number] [facility] ing:[facility] Repository 05/25/2018 [id number] Ambulatory [facility] [place] [facility] [facility] 05/25/2018/05/25/20 [id number] [facility] Medical [address] [place] Repository Med AssocRoom: Room 2 11/24/2017/11/24/19 [id number] [place] [address] ing:[facility] Repository 11/24/2017/11/24/[id number] [place] Repository Med AssocRoom: Room 1 PAYERS PAYERS ENCOUNTER GUARANTOR PAYER SUBSCRIBER SOURCE 11/02/2018 HOA Primary HOA Hall LINDSEYP.O. Box Insurance:ANTHEMPolic LINDSEYDOB: [address] y Number: [id number] Hospital [address]Jnk: 419 [id number] Repository [phone] () Date:[id number] [address] [place] [address]VP: 11/02/2018 Secondary NOT GIVENUNK Isabel Insurance:SELF PAY [facility] Number: Effective Repository Date:2018-11-02 11/02/2018 HOA Primary HOA Hall LINDSEYP.[address]. Box Insurance:ANTHEMPolic LINDSEYDOB: [address] y Number: [id number] Hospital [address]Dci: 419 [id number] Repository [phone] () Date:[id number] [address] [place] [address]RC: 11/02/2018 Secondary NOT GIVENUNK Isabel Insurance:SELF PAY [facility] Number: Effective Repository Date:2018-07-22 09/14/2018 HOA Primary Insurance:UMR HOA YATES Box LEIGH [address] [address] Number: [id number] Hospital [address]Gei: [phone]) [id number] Repository [phone] () Date:[id number] [address] [address]XR: 09/14/2018 Secondary NOT GIVENUNK [place] Insurance:SELF PAY [facility] Number: Effective Repository Date:2018-07-20 05/25/2018 ESTUARDO Cunha Primary HOA Raza Sikh SAHRAB: Insurance:1500 LINDSEYDOB: Merged With [facility] [id number] BOX UMRPolicy Number: [id number] [facility] Effective BOX Repository [facility] Date:2018-05-[address] [place] [address] [id number] [id number]: [phone]: Name:CD:[id number] [address] [place] [address] ()Tel: [phone]) () [place], [place] [address]UF: [phone] (SR) 05/25/2018 ESTUARDO Cunha Primary HOA Santosaritan SAHRAB: Insurance:1500 LINDSEYDOB: Merged With [facility] [id number] BOX UMRPolicy Number: [id number] System [id number] [facility] Effective BOX Repository [facility] Date:2018-05-[address] [place] [address] [id number] [id number]: [phone]: Name:CD:[id number] [address] [place] [address] ()Tel: (194) () [place], [place] [address]QB: [phone] (VO) 05/25/2018 ESTUARDO Cunha Primary HOA yR BOCANEGRAB: Insurance:[facility] LINDEUGENIADOB: Merged With [facility] [id number] BOX UMRPolicy Number: [id number] System [id number] [facility] Effective BOX Repository [facility] Date:2017-11-24 - [address] [place] [address] [id number]: [phone]: Name:CD:[id number] [address] [address]HC[address] [place] (HP)Tel: [phone]) (HP) [place], [place] [address]QK: [phone] (WP) 11/24/2017 ESTUARDO Cunha Primary HOA BOCANEGRAB: Insurance:UMR-UHCPoli LUIS ANGELDOB: Merged With [facility] [id number] BOX cy Number: Effective [id number] System [id number] [facility] Date:2017-11-24 - BOX Repository [facility] [id number] [address] [place] [address] Name:CD:[id number] [id number]: [phone]: [address] [place] [address] [place] [address]NU: (HP)Tel: [phone]) (HP) [phone] (WP) 11/24/2017 ESTUARDO Cunha Primary HOA BOCANEGRAB: Insurance:[facility] LUIS ANGELDOB: Merged With [facility] [id number] BOX UMRPolicy Number: [id number] System [id number] [facility] Effective BOX Repository [facility] Date:2017-11-[address] [place] [address] [id number] [id number]: [phone]: Name:CD:[id number] [address] [address]VRNP DENISON (HP)Tel: [phone]) (HP) [place], [place] [address]YO: [phone] (WP)
== END ==
PROVIDERS: Family Provider Family Medicine; PCP Family Medicine; Referring Provider Obstetrics & Gynecology; Visit Provider Obstetrics & Gynecology
DX: Z12.4 Encounter for screening for malignant neoplasm of cervix (principal)
CPT/HCPCS: 87624; 88175; G0145

== ENCOUNTER → 2019-04-04 11:24 | Outpatient (CLI) | payer BC, SELFPAY ==
[2019-03-30 16:12] VITALS: BMI 35.6
--- NOTE | 2019-04-04 11:29 | US_ITS ---
STUDY: ULTRASOUND TRANSVAGINAL CLINICAL: Female, 58 years old. Is menopausal bleeding TECHNIQUE: Transvaginal COMPARISON: September 22, 2017 transabdominal ultrasound. FINDINGS: Normal uterine size measuring 0.7 x 6.0 x 4.4 cm in maximal craniocaudal dimension. Normal endometrial thickness measuring 1.4 cm. The visualized hypoechoic endometrial mass at the fundus that measures 8.1 x 7.0 mm. There is also a vascular lobulated appearance of the mid aspect of the endometrium towards the lower uterine segment that measures 1.1 x 0.8 cm. There is a fibroid measuring 2.1 x 3.2 x 3.3 cm. There is a 1.3 x 1.3 x 0.9 cm fibroid. There is a minimal nabothian cyst. The ovaries are not visualized. There is no free fluid in the pelvis. Polycystic ovary disease: No. US/Pelvic (Non ) IMPRESSION: Abnormal study. The endometrium is thickened measuring up to 1.4 cm. This is abnormal for postmenopausal patient. This is associated with endometrial atypia, hyperplasia, possible cancer. Within the endometrial fundus 8 mm focal mass or nodule which may represent polyp possible subserosal fibroid possible cancer. There is also vascular endometrial thickening towards the lower uterine segment. Findings are suspicious for atypia. Uterine fibroids. Nonvisualization of the ovaries. N.B. : Ita Ledezma MD, confirmed on 04/04/2019 17:00:12 (ET) that the referring physician received the radiology report. Electronically Signed: Josephine Thornton MD at 16:52 EDT Tel , Service support ,
--- NOTE | 2019-04-04 11:29 | US_ITS ---
STUDY: ULTRASOUND TRANSVAGINAL CLINICAL: Female, 58 years old. Is menopausal bleeding TECHNIQUE: Transvaginal COMPARISON: September 22, 2017 transabdominal ultrasound. FINDINGS: Normal uterine size measuring 0.7 x 6.0 x 4.4 cm in maximal craniocaudal dimension. Normal endometrial thickness measuring 1.4 cm. The visualized hypoechoic endometrial mass at the fundus that measures 8.1 x 7.0 mm. There is also a vascular lobulated appearance of the mid aspect of the endometrium towards the lower uterine segment that measures 1.1 x 0.8 cm. There is a fibroid measuring 2.1 x 3.2 x 3.3 cm. There is a 1.3 x 1.3 x 0.9 cm fibroid. There is a minimal nabothian cyst. The ovaries are not visualized. There is no free fluid in the pelvis. Polycystic ovary disease: No. US/Transvaginal Non- IMPRESSION: Abnormal study. The endometrium is thickened measuring up to 1.4 cm. This is abnormal for postmenopausal patient. This is associated with endometrial atypia, hyperplasia, possible cancer. Within the endometrial fundus 8 mm focal mass or nodule which may represent polyp possible subserosal fibroid possible cancer. There is also vascular endometrial thickening towards the lower uterine segment. Findings are suspicious for atypia. Uterine fibroids. Nonvisualization of the ovaries. N.B. : Ita Ledezma MD, confirmed on 04/04/2019 17:00:12 (ET) that the referring physician received the radiology report. Electronically Signed: Josephine Thornton MD at 16:52 EDT Tel , Service support ,
== END ==
PROVIDERS: Family Provider Family Medicine; PCP Family Medicine; Referring Provider Obstetrics & Gynecology; Visit Provider Obstetrics & Gynecology
DX: N95.0 Postmenopausal bleeding (principal)
CPT/HCPCS: 76830; 76856

== ENCOUNTER 2019-05-18 09:32 | Day surgery (SDC) | payer BC, SELFPAY ==
[2019-03-30 16:12] VITALS: BMI 35.6
[2019-05-08 11:48] VITALS: BMI 35.6
--- NOTE | 2019-05-11 23:45 | HP.PCM_ITS ---
- Problem List (1) Depression Status: Acute Qualifiers: Comment: increase lexapro (2) Obesity Status: Acute Qualifiers: Comment: discussed why weight program (3) Post-menopausal bleeding Status: Acute Comment: fibroids, d and c planned, ordered US History and Physical Date of Admission: 05/18/19 Intake Vital Signs 05/08/19 Body Mass Index (BMI) 35.6 05/08/19 Height 5 ft 4 in 05/08/19 Weight: 208 lb 05/08/19 Body Mass Index (BMI) 35.6 05/08/19 Blood Pressure 102/70 Intake Visit Reasons: pre op Chief Complaint: pre op hysteroscopy D&C with symphion Receiving Clerk Required: No Is patient in pain?: No Allergies Sulfa (Sulfonamide Antibiotics) Allergy (Intermediate, Verified 05/08/19 11:48) allergy imitrex Allergy (Intermediate, Uncoded 05/08/19 11:48) allergy Is last menstrual period known: No Post menopausal: Yes Patient : No : No PFSH Medical History Obesity (Acute) Frequent headaches (Acute) GERD (gastroesophageal reflux disease) (Acute) Heel spur (Acute) Hypertension (Chronic) Surgical History H/O tubal ligation (Acute) History of lithotripsy (Acute) Family History Father Cancer rectal Mother Hypertension Social History (Updated 05/08/19 @ 11:59 by Ita Ledezma MD) Smoking Status: Never smoker alcohol intake: never substance use type: does not use caffeine: Yes what type of physical activity do you participate in: none seatbelt use: always do you feel safe at home: Yes additional social history: JohannRobin Michellejesús Olmos Patient takes care of her mother HPI pre op: Details: ESTUARDO PLASENCIA is a 58 year old who presents for Female Reproductive History Menopausal Symptoms: No night sweats Pregancy History 2 Elective abortions Hx Para 2 Spontaneous abortions Hx # Term Pregnancies Ectopic pregnancies Hx # Pregnancies Multiple births # of living children Past Pregnancies Del. Date Name GA/Weeks Outcome Route Bth Weight Gen Labor Lgth Anesthesia Del Locatn Provider FOB Unknown 1981 [place] Male Unknown 1984 [facility] ROS Const Constitutional: Denies fatigue, night sweats, weight gain or weight loss ENT ENT: Reports system reviewed and no additional complaints, except as docu Cardio Card: Denies chest pain Resp Resp: Denies cough or dyspnea GI GI: Reports as per HPI; denies abdominal pain, constipation, nausea or vomiting : Denies nipple discharge, urinary frequency, urinary incontinence, urinary hesitancy, urinary urgency, vaginal discharge, vaginal dryness, vaginal odor or vaginal itching Musc Musc: Denies joint pain, back pain or muscle weakness Skin Skin/Breast: Denies hair loss, change in hair, dry skin, breast lump, breast pain, breast skin changes or nipple discharge Neuro Neuro: Reports system reviewed and no additional complaints, except as docu Psych Psych: Reports system reviewed and no additional complaints, except as docu Endo Endo: Denies cold intolerance, excessive sweating, heat intolerance or increased thirst Suhail/Lymph Hematologic/Lymphatic: Denies easy bleeding, Denies easy bruising, Denies enlarged lymph nodes Exam Const General: cooperative, healthy appearing, comfortable, no acute distress, well developed Orientation: alert [facility] Head: normal to inspection, normocephalic Ears: hearing grossly normal bilaterally, external ears normal Nose: external nose normal, nares normal Face and sinus: normal facial exam Neck Neck: normal visual inspection, no lymphadenopathy Thyroid: thyroid normal Chest Chest palpation & inspection: normal inspection of the chest Resp Effort & Inspection: normal respiratory effort Auscultation: clear to auscultation bilaterally Cardio Rate: regular rate Rhythm: regular rhythm Heart Sounds: S1 normal, S2 normal GI Inspection: normal to inspection, non-distended Palpation: soft, no hepatosplenomegaly General: bladder normal to palpation External Female Exam: normal external appearance, normal appearance of the urethra Urethra: normal appearance of the urethra, normal palpation, no discharge Speculum Exam - Vagina: normal appearance of the vagina, normal vaginal dis charge Speculum Exam - Cervix: normal appearance of the cervix, nontender Bimanual Exam- Vagina & Uterus: normal bimanual exam, uterine size normal, bladder normal to palpation, uterine shape normal, No cervical tenderness, uterine mobility normal, uterine consistency normal, normal cervical palpation, uterus non-tender Bimanual Exam- Adnexa, other: normal adnexae, adnexae mobile, no adnexal masses, pelvic support normal Pelvic Support: normal Musc Other: gross motor intact no deficits, full bilateral strength Skin General: no rashes or lesions noted Neuro General: alert, awake, moves all extremities, no focal motor deficits Motor: muscle tone normal throughout Extrem General: normal to inspection, no pedal edema Psych Appearance: grossly normal Mental Status: mental status grossly normal Affect: normal affect Speech and Movement: speech and movement normal Assessment & Plan Problems 1. Post-menopausal bleeding N95.0 fibroids, d and c planned, ordered US Plan discussed surgical risks including risks of anesthesia, infection, bleeding, injury to bowel, bladder or blood vessels, and patient wishes to proceed with surgery. Coding Level of Care Code No Charge Diagnoses Post-menopausal bleeding N95.0 UPDATE- I have seen the patient and performed any clinically relevant updates to the history and physical exam. Ita Ledezma MD
--- NOTE | 2019-05-18 | EMB_PTH ---
PATIENT: ESTUARDO PLASENCIA LOC: [facility] U#:[id number] AGE/SX: 58/F ROOM: RE05/18/[address]: Dr. Iat Ledezma MD : 1960 BED: DIS: 05/18/2019 SPEC #: [id number] RECD: 05/18/19 12:52 STATUS: NORMAN AFSHAN #: [id number] KYRA: 05/18/19 00:[address]: Ita Ledezma DEPT: SURGICAL PATHOLOGY RECD BY: Linda Booker ENTERED: 05/18/19 14:25 SP TYPE: ENDOM BX/C RODDY DR: Dr. Burke Ferrer MD Tissues: A - Endometrium, NOS B - Endometrium, NOS C - Endometrium, NOS Procedures: Frozen Section (charge) Surgery Specimen Level IV HEADER OPERATION: Hysteroscopy, D & C Symphion PRE-OP DIAGNOSIS: Postmenopausal bleeding TISSUE SUBMITTED: A - Endometrial mass sent for frozen, B - Endometrial mass, C - Endometrial curettings FROZEN SECTION DIAGNOSIS A. Endometrial mass, biopsy: Complex hyperplasia. AM:meera 05/18/19 Case has been reviewed in consultation with Dr. Huber who concurs with the above diagnosis. IDC:NALLELY MICROSCOPIC DIAGNOSIS A. Endometrial mass, biopsy: Complex hyperplasia with minimal atypia. Negative for malignancy. See comment. B. Endometrial mass: Focal complex hyperplasia with minimal atypia. Fragments of myometrium. Negative for malignancy. See comment. C. Endometrial curettings: Complex hyperplasia with mild atypia. Negative for malignancy. See comment. NALLELY:meera 05/22/19 COMMENT A-C. The fragments show polypoid appearance and may represent fragments of polyp. Please make reference to previous specimen ([id number]) endometrial biopsy with diagnosis of strips and superficial fragments of benign endometrial tissue, consistent with atrophic endometrium. Case has been reviewed in consultation with Dr. Romero who concurs with the above diagnosis. IDC:AM MICROSCOPIC DESCRIPTION Slides are reviewed. GROSS DESCRIPTION A - Received fresh for frozen section diagnosis labeled with the patient's name is a specimen designated endometrial mass. The specimen consists of multiple irregular fragments of [place]-pink soft tissue that in aggregate measure 1 x 0.5 x 0.3 cm. The entire specimen is submitted in one cassette for frozen section diagnosis. / SJ:meera 05/18/19 B - Received in fixative is one container labeled with the patient's name and designated endometrial mass. The specimen consists of multiple irregular fragments of light [place] soft tissue that in aggregate measure 1.7 x 1 x 0.1 cm. The specimen is submitted in its entirety in one cassette. / AM:meera 05/19/19 C - Received in fixative is one container labeled with the patient's name and designated endometrial curettings. The specimen consists of multiple irregular fragments of light to dark [place] soft tissue that in aggregate measure 2 x 1 x 0.2 cm. The specimen is submitted in its entirety in one cassette. / AM:meera 05/19/19 TC: 5 CPT: 48547 x3, 31532
--- NOTE | 2019-05-18 09:47 | EKG12_ITS ---
Test Reason : PREOP Blood Pressure : / mmHG Vent. Rate : 061 BPM Atrial Rate : 061 BPM P-R Int : 170 ms QRS Dur : 092 ms QT Int : 440 ms P-R-T Axes : 034 -04 -03 degrees QTc Int : 442 ms Normal sinus rhythm Normal ECG No previous ECGs available Confirmed by FRANNY KATE ([id number]), supervising editor news reel TIMBO RASHID ([id number]) on 05/24/2019 3:33:53 PM Referred By: Ita Ledezma Confirmed By:FRANNY KATE
[2019-05-18 10:05] VITALS: BP 154/89; PULSE 65; RESP 16; TEMP 36.7; O2SAT 96; BMI 35.3
[2019-05-18 10:05] LABS: Hematocrit 41.8 % (37-47); Hemoglobin 13.7 g/dL (12.0-15.0); Mean Corp Hgb Conc 32.8 g/dL (32-36); Mean Corpuscular Hgb 28.8 pg (27.0-32.0); Mean Platelet Vol. 9.6 fl (6.2-12.0); Platelet Count 223 K/mm3 (150-450); RBC Distribution Width CV 14.1 % (11.6-14.6); RBC Distribution Width SD 45.1 fl (35.1-43.9); Red Blood Count 4.75 M/mm3 (4.2-5.4); White Blood Count 6.7 K/mm3 (4.4-11.0)
[2019-05-18 10:18] LABS: Anion Gap 8 (5-15); BUN 17 mg/dL (7-18); BUN/Creat Ratio 20.6 RATIO (10-20); Calcium,Total 9.6 mg/dL (8.5-10.1); Chloride 107 mmol/L (98-107); Creatinine, Serum 0.83 mg/dL (0.55-1.02); EST Glomerular Filtration Rate 75 mL/min (>60); Est Glom Filt Rate - Afr Amer 91 mL/min (>60); Estimated Creatinine Clearance 62.24 ml/min; Glucose 105 mg/dL (74-106); Potassium 3.7 mmol/L (3.5-5.1); Sodium Level 142 mmol/L (136-145)
--- NOTE | 2019-05-18 11:30 | PCM.OPRPT ---
Problem List (1) Depression Status: Acute Qualifiers: Comment: increase lexapro (2) Obesity Status: Acute Qualifiers: Comment: discussed why weight program (3) Post-menopausal bleeding Status: Acute Comment: fibroids, d and c planned, ordered US Report of Operation Date of Procedure: 05/18/19 Pre-Operative Diagnosis: endometrial lesions postmenopausal bleeding Post-Operative Diagnosis: same plus endometrial mass Surgery/Procedure Performed:: d and c symphion hysteroscopy Description of Surgical Findings:: endometrial cavity filled with mass Type of Anesthesia:: Local MAC Special Medications: none Specimen's removed: emc, endometrial lesion biopsy Drains: none Estimated Blood Loss (mL): 25 Fluids Replaced: crystalloid Description of Procedure: Patient was prepped and draped in a normal sterile fashion under MAC anesthesia. A weighted speculum was placed in the vagina and the anterior lip of the cervix was grasped with a single-tooth tenaculum. A paracervical block was placed with 1% lidocaine. Cervix was progressively dilated to allow passage of a 5 mm hysteroscope. The landscape of the uterine cavity was narrow and irregular but appeared to be endometrial and polypoid in nature.. Uterine sounded to 8 cm. Using the symphion device, a biopsy of part of the mass was taken but due to limited visualization entire resection was not able to be performed. Sharp curettage was also done to feel the entire cavity which still sounded to 8 cm and curettings were sent for frozen and permanent pathology. All instruments were removed from the vagina and excellent hemostasis was noted. Patient was awoken and taken to recovery in stable condition. Tissue was sent for frozen section which came back complex hyperplasia. He was unable to tell if there is atypia or not that will be final on the permanent section tomorrow. Grafts/Implants Used: none - Complications none Multi Select Codes - Urinary/Genital Urinary/Genital CPT Codes: 32019 Hysteroscopy biopsy
[2019-05-18 13:01] VITALS: BP 149/99; BP 154/89; PULSE 67; RESP 16; TEMP 36.1; O2SAT 94
--- NOTE | 2019-05-18 13:05 | DCINST_ITS ---
Discharge Diet: No Restrictions Discharge Activity: Return to Normal Activity, May Shower, May Take a Tub Bath Allergies/Adverse Reactions: Allergies Sulfa (Sulfonamide Antibiotics) Allergy (Intermediate, Verified 05/11/19 14:18) allergy imitrex Allergy (Intermediate, Uncoded 05/11/19 14:18) allergy Medications to take at Discharge amlodipine 5 mg tablet 5 mg PO DAILY 11/02/18 cetirizine 10 mg capsule 10 mg PO DAILY 11/02/18 losartan 100 mg-hydrochlorothiazide 25 mg tablet 1 tab PO DAILY 11/02/18 lutein 20 mg capsule 20 mg PO DAILY 11/02/18 multivitamin,dr-baav-ulhporun tablet 1 tab PO DAILY 11/02/18 pantoprazole 40 mg tablet,delayed release 40 mg PO DAILY 11/02/18 sucralfate 1 gram tablet 1 g PO QACHS PRN 11/02/18 escitalopram 20 mg tablet 20 mg PO QDAY #90 tab 11/04/18 Primary Care Physician: Burke Ferrer MD [Primary Care Provider] - Test Results: Test results from this visit will be discussed in further detail at your follow- up appointment, if applicable. Please Follow Up With: Ita Ledezma MD - [phone]
[2019-05-18 13:10] VITALS: BP 148/83; BP 154/89; PULSE 55; RESP 16; O2SAT 93
[2019-05-18 13:15] VITALS: BP 131/95; BP 154/89; PULSE 63; RESP 16; O2SAT 92
[2019-05-18 13:28] VITALS: BP 121/76; BP 154/89; PULSE 65; RESP 16; TEMP 36.2; O2SAT 92
[2019-05-18 14:00] VITALS: BP 154/89
== END 2019-05-18 14:11 | disposition home or self-care (01) ==
LOC: SDC 09:33 → AC 09:35
PROVIDERS: Family Provider Family Medicine; PCP Family Medicine; Referring Provider Obstetrics & Gynecology; Visit Provider Obstetrics & Gynecology
PROC: 0UB98ZZ Excision of Uterus, Via Natural or Artificial Opening Endoscopic (ICD-10-PCS; CPT 58558; principal; 2019-05-18 10:55)
DX: N95.0 Postmenopausal bleeding (principal); N85.01 Benign endometrial hyperplasia; F32.9 Major depressive disorder, single episode, unspecified; E66.9 Obesity, unspecified; Z68.35 Body mass index [BMI] 35.0-35.9, adult; I10 Essential (primary) hypertension; K21.9 Gastro-esophageal reflux disease without esophagitis; Z79.899 Other long term (current) drug therapy
CPT/HCPCS: 00952; 58558; 80048; 85027; 86850; 86900; 88305; 88331; 93005; J7120

== ENCOUNTER → 2019-10-25 12:23 | Outpatient (CLI) | payer BC, SELFPAY ==
--- NOTE | 2019-10-25 12:23 | BI_ITS ---
MAMMOGRAPHY - BILATERAL SCREENING REASON FOR EXAM: Female, 59 years old. Routine annual screening examination. PERTINENT HISTORY: Non-contributory. TECHNIQUE: Digital bilateral breast caitlyn (3D mammographic acquisition) in the CC and MLO projections. 2-D mediolateral oblique (MLO) and craniocaudad (CC) views of both breasts were obtained. CAD: Full Field Digital Mammography with Computer Added Detection was performed. COMPARISON: Comparison is made with prior examination dated September 14, 2018 and September 08 2017. FINDINGS: Breast Composition: The breasts are heterogeneously dense, which may obscure small masses. There are no dominant masses or suspicious calcifications. No other significant abnormalities are identified. There has been no significant change since the prior study. BI/SCREEN MAMM (CAD) W/CAITLYN BILAT IMPRESSION: Stable bilateral screening mammogram. Yearly follow-up mammogram recommended. (A) ASSESSMENT CATEGORY: BIRADS Category 1: Negative. A letter regarding these results will be sent to the patient by the facility within 30 days. Approximately 10% of breast cancers are not detected by mammography. A normal mammogram should not delay biopsy of a clinically suspicious abnormality. [id number] Electronically Signed: Alvaro Alexis, at 13:30 EST , Service support ,
== END ==
PROVIDERS: Family Provider Family Medicine; PCP Family Medicine; Referring Provider Obstetrics & Gynecology; Visit Provider Obstetrics & Gynecology
DX: Z12.31 Encounter for screening mammogram for malignant neoplasm of breast (principal)
CPT/HCPCS: 77063; 77067

== ENCOUNTER → 2021-03-19 13:57 | Outpatient (CLI) | payer BC, SELFPAY ==
[2020-12-05 10:14] VITALS: BMI 36.8
--- NOTE | 2021-03-19 13:59 | BI_ITS ---
MAMMOGRAPHY - BILATERAL SCREENING REASON FOR EXAM: Female, 60 years old. Routine annual screening examination. PERTINENT HISTORY: Non-contributory. TECHNIQUE: Digital bilateral breast caitlyn (3D mammographic acquisition) in the CC and MLO projections. 2-D mediolateral oblique (MLO) and craniocaudad (CC) views of both breasts were obtained. CAD: Full Field Digital Mammography with Computer Added Detection was performed. COMPARISON: Comparison is made with prior examination dated 10/25/2019 and 09/14/2018. FINDINGS: Breast Composition: The breasts are heterogeneously dense, which may obscure small masses. There are no dominant masses or suspicious calcifications. Stable small bilateral axillary lymph nodes. No other significant abnormalities are identified. There has been no significant change since the prior study. BI/SCRN MAMM (CAD)W/CAITLYN BILAT IMPRESSION: Stable bilateral screening mammogram. Yearly follow-up mammogram recommended. (A) ASSESSMENT CATEGORY: BIRADS Category 2: Benign. A letter regarding these results will be sent to the patient by the facility within 30 days. Approximately 10% of breast cancers are not detected by mammography. A normal mammogram should not delay biopsy of a clinically suspicious abnormality. [id number] Electronically Signed: Alvaro Alexis MD at 15:04 EDT , Service support ,
== END ==
PROVIDERS: PCP Family Medicine; Referring Provider Obstetrics & Gynecology; Visit Provider Obstetrics & Gynecology
DX: Z12.31 Encounter for screening mammogram for malignant neoplasm of breast (principal)
CPT/HCPCS: 77063; 77067

== ENCOUNTER → 2022-03-25 | Outpatient (CLI) | payer BC, SELFPAY ==
--- NOTE | 2022-03-25 11:51 | BI_ITS ---
MAMMOGRAPHY - BILATERAL SCREENING REASON FOR EXAM: Female, 61 years old. Routine annual screening examination. PERTINENT HISTORY: Non-contributory. TECHNIQUE: Digital bilateral breast caitlyn (3D mammographic acquisition) in the CC and MLO projections. 2-D mediolateral oblique (MLO) and craniocaudad (CC) views of both breasts were obtained. CAD: Full Field Digital Mammography with Computer Added Detection was performed. COMPARISON: Comparison is made with prior study dated 03/19/2021 and 10/25/2019. FINDINGS: Breast Composition: The breasts are heterogeneously dense, which may obscure small masses. There are no dominant masses or suspicious calcifications. Stable small bilateral axillary lymph nodes. No other significant abnormalities are identified. There has been no significant change since the prior study. BI/SCRN MAMM (CAD)W/CAITLYN BILAT IMPRESSION: Stable bilateral screening mammogram. Yearly follow-up mammogram recommended. (A) ASSESSMENT CATEGORY: BIRADS Category 2: Benign. A letter regarding these results will be sent to the patient by the facility within 30 days. Approximately 10% of breast cancers are not detected by mammography. A normal mammogram should not delay biopsy of a clinically suspicious abnormality. [id number] Electronically Signed: Alvaro Alexis MD at 13:22 EDT ,
== END | disposition home or self-care (01) ==
LOC: OPBI 11:49
PROVIDERS: PCP Family Medicine; Referring Provider Obstetrics & Gynecology; Visit Provider Obstetrics & Gynecology
DX: Z12.31 Encounter for screening mammogram for malignant neoplasm of breast (principal)
CPT/HCPCS: 77063; 77067

== ENCOUNTER → 2023-04-29 | Outpatient (CLI) | payer BC, SELFPAY ==
--- NOTE | 2023-04-29 13:32 | BI_ITS ---
MAMMOGRAPHY - BILATERAL SCREENING REASON FOR EXAM: Female, 62 years old. Routine annual screening examination. PERTINENT HISTORY: Non-contributory. TECHNIQUE: Digital bilateral breast caitlyn (3D mammographic acquisition) in the CC and MLO projections. 2-D mediolateral oblique (MLO) and craniocaudad (CC) views of both breasts were obtained. CAD: Full Field Digital Mammography with Computer Added Detection was performed. COMPARISON: Comparison is made with prior study dated March 25, 2022 and March 19, 2021. FINDINGS: Breast Composition: The breasts are heterogeneously dense, which may obscure small masses. There is a 4.8 mm x 6.7 mm nodule in the slightly upper central portion of the left breast. Correlation with ultrasound is recommended. There are no dominant masses or suspicious calcifications. No other significant abnormalities are identified. BI/SCRN MAMM (CAD)W/CAITLYN BILAT IMPRESSION: 4.8 mm x 6.7 mm well-defined nodule in the slightly upper central portion of the left breast. Correlation with ultrasound is recommended. ASSESSMENT CATEGORY: BIRADS Category 0: Incomplete. Need additional imaging evaluation. A letter regarding these results will be sent to the patient by the facility within 30 days. Approximately 10% of breast cancers are not detected by mammography. A normal mammogram should not delay biopsy of a clinically suspicious abnormality. [id number] Electronically Signed: Alvaro Alexis MD at 14:32 EDT ,
== END | disposition home or self-care (01) ==
LOC: OPBI 13:30
PROVIDERS: PCP Family Medicine; Referring Provider Obstetrics & Gynecology; Visit Provider Obstetrics & Gynecology
DX: Z12.31 Encounter for screening mammogram for malignant neoplasm of breast (principal)
CPT/HCPCS: 77063; 77067

== ENCOUNTER → 2023-04-30 | Outpatient (CLI) | payer BC, SELFPAY ==
--- NOTE | 2023-04-30 11:16 | BI_ITS ---
MAMMOGRAPHY - UNILATERAL DIAGNOSTIC: LEFT BREAST REASON FOR EXAM: Female, 62 years old. Abnormal screening mammogram. PERTINENT HISTORY: Non-contributory. TECHNIQUE: Mediolateral oblique and craniocaudad views were obtained with skin markers. CAD: Full Field Digital Mammography with Computer Added Detection was performed. COMPARISON: Comparison is made with prior mammogram dated April 29, 2023. FINDINGS: Breast Composition: The breasts are heterogeneously dense, which may obscure small masses. The previously seen 4.8 mm x 6.7 mm nodule in the left breast represents a skin lesion in the inferior aspect of the left breast. No other significant abnormalities are identified. BI/DIAG MAMM W/CAD, UNILAT IMPRESSION: Stable unilateral diagnostic mammogram. One year follow-up mammogram recommended. (A) ASSESSMENT CATEGORY: BIRADS Category 2: Benign. A letter regarding these results will be sent to the patient by the facility within 30 days. Approximately 10% of breast cancers are not detected by mammography. A normal mammogram should not delay biopsy of a clinically suspicious abnormality. Electronically Signed: Alvaor Alexis MD at 13:56 EDT ,
== END | disposition home or self-care (01) ==
LOC: OPBI 11:13
PROVIDERS: PCP Family Medicine; Visit Provider Obstetrics & Gynecology
DX: R92.8 Other abnormal and inconclusive findings on diagnostic imaging of breast (principal)
CPT/HCPCS: 77065

== ENCOUNTER → 2024-05-01 | Outpatient (CLI) | payer BC, SELFPAY ==
--- NOTE | 2024-05-01 10:10 | BI_ITS ---
MAMMOGRAPHY - BILATERAL SCREENING REASON FOR EXAM: Female, 63 years old. Routine annual screening examination. PERTINENT HISTORY: Non-contributory. History of sebaceous cyst. TECHNIQUE: Digital bilateral breast caitlyn (3D mammographic acquisition) in the CC and MLO projections. 2-D mediolateral oblique (MLO) and craniocaudad (CC) views of both breasts were obtained. CAD: Full Field Digital Mammography with Computer Added Detection was performed. COMPARISON: Comparison is made with prior study dated April 29, 2023 and March 25, 2022. FINDINGS: Breast Composition: The breasts are heterogeneously dense, which may obscure small masses. There are no dominant masses or suspicious calcifications. No other significant abnormalities are identified. There has been no significant change since the prior study. BI/SCRN MAMM (CAD)W/CAITLYN BILAT IMPRESSION: Stable bilateral screening mammogram. Yearly follow-up mammogram recommended. (A) ASSESSMENT CATEGORY: BIRADS Category 1: Negative. A letter regarding these results will be sent to the patient by the facility within 30 days. Approximately 10% of breast cancers are not detected by mammography. A normal mammogram should not delay biopsy of a clinically suspicious abnormality. [id number] Electronically Signed: Alvaro Alexis MD at 11:05 EDT ,
== END | disposition home or self-care (01) ==
LOC: OPBI 10:09
PROVIDERS: PCP Family Medicine; Referring Provider Obstetrics & Gynecology; Visit Provider Obstetrics & Gynecology
DX: Z12.31 Encounter for screening mammogram for malignant neoplasm of breast (principal)
CPT/HCPCS: 77063; 77067

== ENCOUNTER → 2025-05-08 | Outpatient (CLI) | payer BC, SELFPAY ==
--- NOTE | 2025-05-08 16:15 | BI_ITS ---
EXAM: SCRN MAMM (CAD)W/CAITLYN BILAT DATE: 05/08/2025 CLINICAL HISTORY: F, Age 64 y/o , SCREEN FOR BREAST CANCER TECHNIQUE: SCRN MAMM (CAD)W/CAITLYN BILAT COMPARISON: Prior exam(s) were compared FINDINGS: TISSUE DENSITY: The breasts are heterogeneously dense, which may obscure small masses. Bilateral Breast Mammographic Findings: No suspicious masses, calcifications or other abnormalities are identified. BI/SCRN MAMM (CAD)W/CAITLYN BILAT IMPRESSION: No mammographic evidence of malignancy in either breast OVERALL FINAL ASSESSMENT BI-RADS 1: NEGATIVE. RECOMMENDATION: Routine annual follow-up in 1 Year A letter with findings and recommendations will be mailed to the patient. Reading Location: [id number]
== END | disposition home or self-care (01) ==
LOC: OPBI 16:06
PROVIDERS: PCP Family Medicine; Referring Provider Obstetrics & Gynecology; Visit Provider Obstetrics & Gynecology
DX: Z12.31 Encounter for screening mammogram for malignant neoplasm of breast (principal)
CPT/HCPCS: 77063; 77067